=== PATIENT | female | born 1955 | race Caucasian/White ===

== ENCOUNTER → 2018-12-27 12:21 | Outpatient (CLI) | payer OTHER, SELFPAY ==
--- NOTE | 2018-12-27 | DI.RAD.S_ITS ---
PROCEDURE: XR SINUS MIN 3V INDICATIONS: NECK SPRAIN TECHNIQUE: 3 views of the sinuses were acquired. COMPARISON: None. FINDINGS: Sinuses: The visualized sinuses demonstrate no air-fluid levels or mucosal thickening. The visualized mastoids also appear clear. Bones: No suspicious bony lesions. Nasal septum is midline. IMPRESSION: Negative examination as above Dictated by: Jeovany Short M.D. on 12/27/2018 at 17:10 Approved by: Jeovany Short M.D. on 12/27/2018 at 17:12
--- NOTE | 2018-12-27 | DI.RAD.S_ITS ---
PROCEDURE: XR CERVICAL SPINE 2V OR 3V INDICATIONS: NECK SPRAIN TECHNIQUE: 3 view(s) of the cervical spine were acquired. COMPARISON: None. FINDINGS: Bones: No fractures or dislocations to the C7 level. The lateral masses of C1 appear intact on the odontoid view. No suspicious bony lesions. Multilevel degenerative endplate sclerosis and spurring. Diffuse facet arthropathy. Mild narrowing of the C4-C5, C5-C6 and C6-C7 disc spaces. Soft tissues: No prevertebral soft tissue swelling. IMPRESSION: Multilevel mid-lower cervical spondylosis and facet disease. Dictated by: Jeovany Short M.D. on 12/27/2018 at 15:15 Approved by: Jeovany Short M.D. on 12/27/2018 at 15:17
== END ==
PROVIDERS: PCP Family Medicine; Visit Provider Family Medicine
DX: S13.9XXA Sprain of joints and ligaments of unspecified parts of neck, initial encounter (principal); M47.812 Spondylosis without myelopathy or radiculopathy, cervical region; X58.XXXA Exposure to other specified factors, initial encounter
CPT/HCPCS: 70220; 72040

== ENCOUNTER → 2020-01-10 10:18 | Outpatient (CLI) | payer OTHER, SELFPAY ==
[2020-01-10 11:56] LABS: COVID19 -Nasal RAPID Negative (Negative)
== END ==
PROVIDERS: PCP Family Medicine; Visit Provider Surgery
DX: Z11.59 Encounter for screening for other viral diseases (principal)
CPT/HCPCS: 87635; C9803

== ENCOUNTER 2020-01-13 10:14 | Day surgery (SDC) | payer OTHER, SELFPAY ==
[2020-01-13 10:54] VITALS: BP 124/75; PULSE 84; RESP 15; TEMP 36.6; O2SAT 99; BMI 28.3
[2020-01-13] MEDS: LACTATED RINGERS 1,000 ML 200 ML IV (10:55)
--- NOTE | 2020-01-13 11:38 | PM.HP.1 ---
History of Present Illness History of Present Illness Date Patient Seen: 01/13/20 Time Patient Seen: 11:38 Chief complaint: SCREENING COLONOSCOPY Narrative: The patient presents for colorectal sreening. She has had several previous colonoscopyies, several which demonstrated polyps most recently 5 years ago without polyps. No personal history of colon cancer but does have a family history of colon cancer. On further history denies any recent gastrointestinal symptoms. No nausea, vomiting, abdominal pain, loss of appetite, unexplained weight loss, change in bowel habits, diarrhea, constipation, melena, hematochezia, or bright red blood per rectum. Patient History Medical History Colon polyps Hypothyroid Surgical History H/O: hysterectomy Family & Social History Social History: household members spouse Tobacco & Substance use: Tobacco type cigarettes Smoking Status Never smoker alcohol intake current alcohol intake frequency 0-2 drinks per day Substance Use Type marijuana Meds Home Medications and Allergies Home Medications Medication Instructions Recorded Confirmed Type sodium,potassium,mag sulfates 17.5 177 ml PO DAILY #354 ml 11/27/19 Rx gram-3.13 gram-1.6 gram oral soln alprazolam 0.5 mg PO BEDTIME PRN 01/13/20 01/13/20 History citalopram 20 mg PO DAILY 01/13/20 01/13/20 History cyclobenzaprine 10 mg PO BEDTIME PRN 01/13/20 01/13/20 History hydrocodone-acetaminophen 1 tab PO Q6H PRN 01/13/20 01/13/20 History lansoprazole 30 mg PO DAILY 01/13/20 01/13/20 History levothyroxine 175 mcg PO DAILY 01/13/20 01/13/20 History Allergies Allergy/AdvReac Type Severity Reaction Status Date / Time No Known Drug Allergies Allergy Verified 01/13/20 10:45 Exam Vital Signs (past 8 hours): - 01/13/20 10:54 Temperature 97.9 F Pulse Rate 84 Respiratory Rate 15 Blood Pressure 124/75 Pulse Oximetry 99 Oxygen Delivery Method Room Air Narrative Exam Narrative: General-no acute distress, well nourished adult woman HEENT-moist mucous membranes, no scleral icterus Neck-supple, no lymphadenopathy Chest- non labored respirations, clear to auscultation bilaterally Cardiac-regular rate no peripheral edema Abdomen-soft, nontender, non distended Extremities-warm, well perfused Neurological-alert and oriented, no focal deficits Assessment & Plan Assessment & Plan narrative: The patient requires colorectal screening and colonoscopy is recommended. Technical details were discussed. Risks, benefits, alternatives explained. Risks including but not limited to myocardial infarction, aspiration, bleeding, pain, missed lesion, incomplete examination, need for further radiographic studies, colonic perforation, and need for major abdominal surgery were discussed. All questions were answered to their satisfaction, and they are in agreement with this plan.
[2020-01-13] MEDS: fentaNYL 250 MCG/5 ML INJ IV (11:47)
[2020-01-13] MEDS: MIDAZOLAM 5 MG/5 ML VIAL IV (11:52)
--- NOTE | 2020-01-13 12:05 | PM.OP.ENDO ---
Operative Date/Time/Diagnoses Date of procedure: 01/13/20 Time of procedure: 12:06 Pre-op diagnosis: History of polyps, family history colon cancer Post-op diagnosis: same Procedure & Clinicians Study performed: Colonoscopy Same procedure as scheduled: Yes Indications: 64-year-old female history of colonic polyps family history of colon cancer here for screening Surgeon: Aj Connolly Procedure Notes Procedure in detail: Medications: Conscious sedation using 7mg IV midazolam and 150mcg IV of fentanyl The history and physical was performed/updated and the patient is ASA class is 2. The procedure was discussed in detail with the patient. Potential risks complications including infection, bleeding, missed diagnosis, perforation, need for surgery, and were explained. Their questions were answered and informed consent was obtained. Patient was brought to the procedure room and placed standard monitoring equipment. The patient's vital signs were monitored continuously throughout the entire procedure. Prior to starting time-out was performed. The ablation patient was placed in the left lateral recumbent position. Procedural sedation was administered. Examination began with a thorough inspection of the perianal area there was no evidence of fissures, fistulae, external hemorrhoids or cutaneous malignancy. The colonoscopy scope was then placed into the anal canal and was advanced to the cecum, which was identified by the ileocecal valve, the appendiceal orifice and the confluence of the taenia. The scope was then slowly withdrawn examining colon thoroughly in all directions, irrigating it of any residual stool. No masses or polyps Mild sigmoid diverticulosis The patient tolerated the procedure well. They will be discharged once criteria are met. The prep was of good/excellent quality. The withdrawl time was 7minutes. The sedation time was 21 minutes. Specimen(s): none sent Complications: none Impression: Normal colonoscopy Post-procedure Recommendations: Colonscopy in 5 years Disposition: same day surgery
[2020-01-13 12:08] VITALS: BP 113/61; PULSE 72; RESP 18; TEMP 36.6; O2SAT 95
[2020-01-13 12:13] VITALS: BP 99/54; PULSE 70; RESP 11; O2SAT 95
[2020-01-13 12:18] VITALS: BP 90/47; PULSE 85; RESP 13; O2SAT 97
[2020-01-13 12:29] VITALS: BP 106/64; PULSE 69; RESP 11; TEMP 36.7; O2SAT 96
== END 2020-01-13 12:43 | disposition home or self-care (01) ==
PROVIDERS: PCP Family Medicine; Referring Provider Surgery; Visit Provider Surgery
PROC: 0DJD8ZZ Inspection of Lower Intestinal Tract, Via Natural or Artificial Opening Endoscopic (ICD-10-PCS; CPT 45378; principal; 2020-01-13 11:30)
DX: Z12.11 Encounter for screening for malignant neoplasm of colon (principal); Z86.010 Personal history of colon polyps; Z80.0 Family history of malignant neoplasm of digestive organs; E03.9 Hypothyroidism, unspecified; K57.30 Diverticulosis of large intestine without perforation or abscess without bleeding
CPT/HCPCS: 45378; 99152; J2250; J3010

== ENCOUNTER → 2020-06-01 12:56 | Outpatient (CLI) | payer OTHER, SELFPAY ==
--- NOTE | 2020-06-01 13:02 | DI.CT.S_ITS ---
PROCEDURE: CT CHEST WO CON INDICATIONS: Other nonspecific abnormal finding of lung field TECHNIQUE: Noncontrast 5 mm thick sections acquired from the pulmonary apices to the posterior costophrenic angles. 1 mm lung window, 5 mm thick coronal and sagittal and 7 mm axial MIP reformats were then acquired. For radiation dose reduction, the following was used: automated exposure control, adjustment of mA and/or kV according to patient size. COMPARISON: [facility], CT, THORAX WITHOUT CONTRAST, 12/13/2016, 9:40. FINDINGS: Image quality: Excellent. Lungs and pleura: Scattered subsegmental atelectasis and/or scarring. No focal consolidation. 9 mm right upper lobe appears grossly unchanged since 12/13/16 Mediastinum: Heart size is normal. No pericardial effusion. No mediastinal adenopathy by size criteria. Thoracic aorta and central pulmonary arteries are normal in size. Esophagus is normal in caliber. No hiatal hernia. T9 vertebral body intraosseous hemangioma No vertebral body compression fractures. No axillary or supraclavicular adenopathy by size criteria. Abdomen: Visualized upper abdominal solid organs and bowel loops appear normal in the absence of contrast. IMPRESSION: Overall, unchanged appearance of 9 mm pulmonary nodule involving the right upper lobe since 12/13/16. Dictated by: Jeovany Short M.D. on 06/01/2020 at 14:31 Approved by: Jeovany Short M.D. on 06/01/2020 at 14:38
== END ==
PROVIDERS: PCP Family Medicine; Referring Provider Family Medicine; Visit Provider Family Medicine
DX: R91.8 Other nonspecific abnormal finding of lung field (principal)
CPT/HCPCS: 71250